=== PATIENT | female | born 1975 | race Caucasian/White ===

== ENCOUNTER → 2017-05-17 | Outpatient (CLI) | payer OTHER ==
[~2017-05-17] MED LIST: ANTIVERT PO; BENTYL20 MG; BENZONATATE PO; ESCITALOPRAM OX10 MG PO; IBUPROFEN800 MG PO; LEVOXYL200 MC1 PO; NAPROXEN PO; NO MEDICATIONS; PHENERGAN25 M1 PO; PRILOSEC PO; PRILOSEC20 M1 PO; ROBITUSSIN A-C S5 ML PO; SIMVASTATIN20 MG PO; SYNTHROID175 MCG PO; VITAMIN B 12 PO; VITAMIN D; ZOFRAN PO
--- NOTE | ~2017-05-17 | MY29 ---
[facility] A Service of [facility] RADIOLOGY TEXT RESULTS PATIENT: ELIDIA MOSES LOCATION: [facility] : 77 UNIT #: [id number] AGE: [address]: Rebecca Valle MD SEX: F ORDER DR: [id number] [facility] [address] [place], [place] [address] [id number] O MR#: [id number] Acc #: [id number] NAME: ELIDIA MOSES. : 1975 SEX: F STUDY DATE/TIME: 05/17/2017 16:14 UNIT: [facility] ROOM: STUDY DESCRIPTION: MY [facility] SCREENING W/ CAD BILAT Attending Physician: Rebecca Valle M.D. Referring Physician: Rebecca Valle M.D. Ordering Physician: Rebecca Valle M.D. Primary Care Physician: Rebecca Valle M.D. MEDICAL IMAGING REPORT This report is preliminary unless electronic signature is present EXAM Digital screening mammogram 05/17/2017 HISTORY 41-year-old woman. Positive family history, cousin. Family history of ovarian cancer in grandmother. Annual screen. COMPARISON Screening mammogram 03/20/2013 with diagnostic follow up 03/30/2013 and again, 10/11/2013. Most recent screening 05/14/2016. FINDINGS Digital imaging of each breast was completed utilizing screening protocol. Review includes FDA-approved CAD device. Breast parenchyma is heterogeneously dense with scattered nodular opacities in each breast. Dominance is again noted in the upper, outer quadrant of the right breast. The appearance overall is stable. I see no interval occurring breast mass. There are no suspicious microcalcifications and no suspicious architectural deformity. IMPRESSION Stable benign mammogram. Stable benign dominance right breast. Annual screening recommended. Patient's over the age of 40 are entered into a reminder system with target due date for the next mammogram. BIRADS: 2 Benign findings Dictated by... Miguel Angel Hussein M.D. [facility] A Service of [facility] RADIOLOGY TEXT RESULTS PATIENT: ELID[facility] MOSES [id number] : [birth year] UNIT #: [id number] AGE: [address]: Rebceca Valle MD SEX: F ORDER DR: THIS IS AN ELECTRONICALLY VERIFIED REPORT Miguel Angel Hussein M.D. at 05/19/2017 3:33 PM Tito TD: 05/19/2017 14:03 JOB #: [id number] MEDICAL IMAGING REPORT Page 1 of 1 COPY
== END | disposition home or self-care (01) ==
LOC: CWCC 05-06 11:15
DX: Z12.31 Encounter for screening mammogram for malignant neoplasm of breast (principal); Z80.3 Family history of malignant neoplasm of breast; Z80.41 Family history of malignant neoplasm of ovary
CPT/HCPCS: G0202

== ENCOUNTER 2017-06-26 22:56 | Emergency (ER) | payer OTHER ==
[~2017-06-26] VITALS: Ht 162.6 cm; Wt 83.0 kg
== END 2017-06-27 12:32 | disposition home or self-care (01) ==
LOC: CED 22:56
DX: S80.861A Insect bite (nonvenomous), right lower leg, initial encounter (principal); Z23 Encounter for immunization; E78.5 Hyperlipidemia, unspecified; E07.9 Disorder of thyroid, unspecified; Z90.710 Acquired absence of both cervix and uterus; W57.XXXA Bitten or stung by nonvenomous insect and other nonvenomous arthropods, initial encounter; Y92.9 Unspecified place or not applicable
CPT/HCPCS: 90471; 90715; 99283